=== PATIENT | male | born 1995 | race Caucasian/White ===

== ENCOUNTER 2016-10-15 14:20 | Emergency (ER) | payer MEDICAID ==
[2016-10-15 14:28] VITALS: BP 127/81
--- NOTE | 2016-10-15 14:41 | ED Physician Documentation ---
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 He has had 3 days of intermittent but severe sore throat without fevers. He does feel congested. There is no cough.) Review of Systems Constitutional: denies: Fever, Chills Nose: denies: Rhinorrhea / runny nose, Congestion Cardiac: denies: Chest pain / pressure, Palpitations Respiratory: denies: Dyspnea, Cough PD PAST MEDICAL HISTORY - Past Medical History Past Medical History: No - Past Surgical History Past Surgical History: Yes - Present Medications Home Medications: Ambulatory Orders Medication Instructions Recorded Confirmed No Known Home Medications [No 02/27/16 02/27/16 Known Home Medications] - Allergies Allergies/Adverse Reactions: Allergies Allergy/AdvReac Type Severity Reaction Status Date / Time morphine AdvReac Emesis Verified 10/15/16 14:28 - Social History Does the pt smoke?: No Smoking Status: Never smoker Does the pt drink ETOH?: No Does the pt have substance abuse?: No - Immunizations Immunizations are current?: Yes - POLST Patient has POLST: No PD ED PE NORMAL - Vitals Vital signs reviewed: Yes - General General: Alert and oriented X 3, No acute distress - HEENT HEENT: PERRL, EOMI, Other (He has sequela of prior cleft lip and palate repair with absent tonsils and prominence of the left side which she thinks is baseline. He does not have an asymmetric sore throat so I do not think this represents some sort of mass and it does not look inflamed. The remainder of his oropharynx looks grossly normal without evidence of inflammation and there is no cervical adenopathy.) - Cardiac Cardiac: RRR, No murmur - Respiratory Respiratory: No respiratory distress, Clear bilaterally - Abdomen Abdomen: Non tender - Derm Derm: No rash - Neuro Neuro: Alert and oriented X 3, Normal speech - Psych Psych: Normal mood, Normal affect Results - Vitals Vitals: Vital Signs - 24 hr 10/15/16 14:26 Temperature 36.1 C L Heart Rate 101 H Respiratory 20 Rate Blood Pressure 127/81 H O2 Saturation 98 Oxygen O2 Source Room air - Labs Labs: Laboratory Tests 10/15/16 14:40 Group A Strep Rapid Negative Departure - Departure Disposition: Home, Self Care Clinical Impression: Viral pharyngitis Condition: Good Record reviewed to determine appropriate education?: Yes Instructions: ED Pharyngitis Viral Comments: Tylenol or ibuprofen as needed for pain. Your strep test is negative but we will culture your throat as well and call you if a pathogen grows. Return if worse, follow-up with your doctor early next week if not improved. Your blood pressure was elevated today on check into the emergency department. This does not mean that you have hypertension, it is a common phenomenon to come to the emergency department and have elevated blood pressure. I recommend that she see her primary care physician within the week to have it rechecked when you are feeling better.
[2016-10-15 15:00] LABS: RAPID STREP SCREEN REAGENT QC YELLOW (YELLOW)
== END 2016-10-15 15:15 | disposition home or self-care (01) ==
LOC: ED 14:20
DX: J02.8 Acute pharyngitis due to other specified organisms (principal); B97.89 Other viral agents as the cause of diseases classified elsewhere; R03.0 Elevated blood-pressure reading, without diagnosis of hypertension
CPT/HCPCS: 87070; 87430; 99282; 99283

== ENCOUNTER 2017-07-30 11:34 | Emergency (ER) | payer OTHER, MEDICAID ==
[2017-07-30 11:40] VITALS: BP 135/81
--- NOTE | 2017-07-30 11:56 | ED Physician Documentation ---
PD HPI ANIMAL BITE - Stated complaint Stated Complaint: CAT BITE/L HAND - Chief complaint Chief Complaint: General - History obtained from History obtained from: Patient - History of Present Illness Location of injury(ies): [place] Details of the event: Cat, Bite, Scratch, Pet animal, Immunized, Provoked, Animal can be observed, Animal control notified (works at [employer]) Timing - onset: Today Timing - duration: Minutes Timing - details: Abrupt onset, Still present Improved by: Rest Worsened by: Moving, Palpating Associated symptoms: No: Weakness, Numbness, Tingling Contributing factors: No: Immunocompromised Similar symptoms before: Diagnosis (cat bite) Recently seen: Not recently seen - Additional information Additional information: 22-year-old male has just started working at [employer] and today he was handling a cat that began to fall and he went to grab for the cat scratched his forearm and bit his hand. He is up-to-date on his tetanus and the cat is up-to-date on its immunizations. Review of Systems Constitutional: denies: Fever Eyes: denies: Decreased vision Nose: denies: Congestion Throat: denies: Sore throat Respiratory: denies: Cough GI: denies: Vomiting : denies: Frequency Skin: reports: Bite / sting PD PAST MEDICAL HISTORY - Past Medical History Past Medical History: No - Past Surgical History Past Surgical History: Yes - Present Medications Home Medications: Ambulatory Orders Medication Instructions Recorded Confirmed Amox/Clav 875/125 [Augmentin] 1 each PO Q12H #14 tablet 07/30/17 - Allergies Allergies/Adverse Reactions: Allergies Allergy/AdvReac Type Severity Reaction Status Date / Time morphine AdvReac Emesis Verified 07/30/17 11:39 - Social History Does the pt smoke?: No Smoking Status: Never smoker Does the pt drink ETOH?: No Does the pt have substance abuse?: No - Immunizations Immunizations are current?: Yes - POLST Patient has POLST: No PD ED PE NORMAL - Vitals Vital signs reviewed: Yes (hypertensive ) - General General: Alert and oriented X 3, No acute distress, Well developed/nourished - HEENT HEENT: Atraumatic, PERRL, EOMI - Respiratory Respiratory: No respiratory distress - Derm Derm: Normal color, Warm and dry, No rash - Extremities Extremities: No deformity, No edema, Other (There are linear scratches to the volar surface of the forearm and tiny puncture wounds to the hand over the hypothenar area. ) - Neuro Neuro: No motor deficit, No sensory deficit Eye Opening: Spontaneous Motor: Obeys Commands Verbal: Oriented GCS Score: 15 - Psych Psych: Normal mood, Normal affect Results - Vitals Vitals: Vital Signs - 24 hr 07/30/17 11:38 Temperature 35.7 C L Heart Rate 70 Respiratory 20 Rate Blood Pressure 135/81 H O2 Saturation 95 Oxygen O2 Source Room air PD MEDICAL DECISION MAKING - ED course Complexity details: considered differential, d/w patient ED course: Cat scratch and bite to the left upper extremity is fresh. We will place the patient on prophylactic antibiotic. Departure - Departure Disposition: 01 Home, Self Care Clinical Impression: Cat bite involving extremity Condition: Stable Instructions: ED Bite Cat Follow-Up: [facility] [Provider Group] Prescriptions: Amox/Clav 875/125 [Augmentin] 1 each PO Q12H #14 tablet
== END 2017-07-30 12:05 | disposition home or self-care (01) ==
LOC: ED 11:34
DX: S61.452A Open bite of left hand, initial encounter (principal); S60.512A Abrasion of left hand, initial encounter; W55.03XA Scratched by cat, initial encounter; W55.01XA Bitten by cat, initial encounter; Y93.F9 Activity, other caregiving; Y92.89 Other specified places as the place of occurrence of the external cause; Y99.0 Civilian activity done for income or pay
CPT/HCPCS: 1040M; 99283

== ENCOUNTER 2019-03-11 13:48 | Emergency (ER) | payer OTHER ==
[2019-03-11 14:15] VITALS: BP 141/78
[2019-03-11] MEDS ORDERED: TETANUS/DIPHTHERIA/PERTUSSIS 0.5 ML SYRINGE IM ONE (15:28)
--- NOTE | 2019-03-11 15:31 | ED Physician Documentation ---
PD HPI ANIMAL BITE - Stated complaint Stated Complaint: CAT BITE - Chief complaint Chief Complaint: Wound - History obtained from History obtained from: Patient - History of Present Illness Location of injury(ies): [place] Details of the event: Cat, Wild animal, Immunization unknown, Provoked, Animal can be observed Timing - onset: Today Timing - duration: Minutes Timing - details: Abrupt onset, Still present Improved by: Rest Worsened by: Moving, Palpating Associated symptoms: No: Weakness, Numbness, Tingling, Swelling Contributing factors: No: Immunocompromised Similar symptoms before: Diagnosis (cat bite) Recently seen: Not recently seen - Additional information Additional information: Previously well 23-year-old male who works for [employer] and today he was investigating a feral cat in the back of a patrons car when the cat went to run he grabbed the cat the cat scratched both of his arms and hands. He has multiple small scratches. They are able to observe the cat with contact to the patron.The patient is uncertain about his tetanus status he believes he got lawn last when he was 16 and he is 23 now. Review of Systems Constitutional: denies: Fever Nose: denies: Congestion Throat: denies: Sore throat Respiratory: denies: Dyspnea, Cough GI: denies: Vomiting Skin: reports: Abrasion (s), Bite / sting Musculoskeletal: reports: Extremity pain PD PAST MEDICAL HISTORY - Past Medical History Past Medical History: No - Past Surgical History Past Surgical History: Yes Derm: Other - Present Medications Home Medications: Ambulatory Orders Medication Instructions Recorded Confirmed Amox/Clav 875/125 [Augmentin] 1 each PO Q12H #14 tablet 07/30/17 Amox/Clav 875/125 [Augmentin] 1 each PO Q12H #10 tablet 03/11/19 - Allergies Allergies/Adverse Reactions: Allergies Allergy/AdvReac Type Severity Reaction Status Date / Time morphine AdvReac Emesis Verified 07/30/17 11:39 - Social History Does the pt smoke?: No Smoking Status: Never smoker Does the pt drink ETOH?: No Does the pt have substance abuse?: No - Immunizations Immunizations are current?: Yes - POLST Patient has POLST: No PD ED PE NORMAL - Vitals Vital signs reviewed: Yes (hypertensive ) - General General: Alert and oriented X 3, No acute distress, Well developed/nourished - HEENT HEENT: Atraumatic, PERRL, EOMI - Respiratory Respiratory: No respiratory distress - Derm Derm: Normal color, Warm and dry, No rash - Extremities Extremities: No deformity, No tenderness to palpate, Normal ROM s pain, No edema, Other (There are multiple tiny superficial and deep scratches to the forearms bilaterally. 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, No motor deficit, No sensory deficit, Normal speech Eye Opening: Spontaneous Motor: Obeys Commands Verbal: Oriented GCS Score: 15 - Psych Psych: Normal mood, Normal affect Results - Vitals Vitals: Vital Signs - 24 hr 03/11/19 14:12 Temperature 36.6 C Heart Rate 98 Respiratory 18 Rate Blood Pressure 141/78 H O2 Saturation 97 Oxygen O2 Source Room air PD MEDICAL DECISION MAKING - ED course Complexity details: considered differential, d/w patient ED course: 23-year-old male with superficial scratches to both forearms from a cat will be placed on antibiotic prophylaxis with Augmentin.He has tolerated this previously. He is 7 years on his tetanus and he is updated today. Departure - Departure Disposition: 01 Home, Self Care Clinical Impression: Cat bite involving extremity Condition: Stable Instructions: ED Bite Cat Follow-Up: [facility] [Provider Group] Prescriptions: Amox/Clav 875/125 [Augmentin] 1 each PO Q12H #10 tablet
== END 2019-03-11 15:51 | disposition home or self-care (01) ==
LOC: ED 13:48
DX: S50.812A Abrasion of left forearm, initial encounter (principal); S50.811A Abrasion of right forearm, initial encounter; S60.512A Abrasion of left hand, initial encounter; S60.511A Abrasion of right hand, initial encounter; S61.451A Open bite of right hand, initial encounter; W55.01XA Bitten by cat, initial encounter; W55.03XA Scratched by cat, initial encounter; Y93.89 Activity, other specified; Y99.0 Civilian activity done for income or pay; Z23 Encounter for immunization
CPT/HCPCS: 1040M; 90471; 90715; 99283; 99284

== ENCOUNTER 2020-02-02 07:00 | Outpatient (CLI) | payer OTHER | END 2020-02-02 23:59 | disposition home or self-care (01) | LOC: COV 07:00 | PROVIDERS: ATTEND Family Medicine | DX: U07.1 COVID-19 (principal) ==

== ENCOUNTER 2020-03-25 15:04 | Outpatient (CLI) | payer OTHER | END 2020-03-25 15:05 | disposition home or self-care (01) | LOC: COV 15:04 | PROVIDERS: ATTEND Family Medicine | DX: Z20.822 Contact with and (suspected) exposure to COVID-19 (principal) ==

== ENCOUNTER 2020-10-08 08:00 | Outpatient (CLI) | payer OTHER | END 2020-10-08 23:59 | disposition home or self-care (01) | LOC: LAB.N 08:00 | PROVIDERS: ATTEND Family Medicine | DX: J34.89 Other specified disorders of nose and nasal sinuses (principal); Z20.822 Contact with and (suspected) exposure to COVID-19 ==

== ENCOUNTER 2023-03-23 10:11 | Emergency (ER) | payer OTHER ==
[2023-03-23 10:24] VITALS: BP 139/79; O2SAT 96
--- NOTE | 2023-03-23 11:18 | ED Physician Documentation ---
History of Present Illness - Stated complaint Stated Complaint: DOG BITE - Chief complaint Chief Complaint: Laceration - History obtained from History obtained from: Patient - History of Present Illness Pain level max: 0 Pain level now: 0 - Additonal information Additional information: 27-year-old male presents to the emergency department with a dog bite from his palpate to the left hand. Puncture wound on the dorsum of the hand and wound on the left fourth digit, dorsum. Tetanus up-to-date. They were playing with a stick. No fevers. No chills. Nothing makes it better or worse. Review of Systems Constitutional: denies: Fever, Chills GI: denies: Vomiting, Diarrhea Skin: denies: Rash PD PAST MEDICAL HISTORY - Past Medical History Cardiovascular: None Respiratory: None Neuro: None Endocrine/Autoimmune: None GI: None : None HEENT: None Psych: None Musculoskeletal: None Derm: None - Past Surgical History Past Surgical History: Yes Derm: Other - Present Medications Home Medications: Ambulatory Orders Medication Instructions Recorded Confirmed Amox/Clav 875/125 [Augmentin] 1 tab PO Q12H #14 tablet 03/23/23 - Allergies Allergies/Adverse Reactions: Allergies Allergy/AdvReac Type Severity Reaction Status Date / Time morphine AdvReac Emesis Verified 03/23/23 10:15 - Social History Does the pt smoke?: No Smoking Status: Former smoker Does the pt drink ETOH?: Yes Does the pt have substance abuse?: Yes Substance Use and Type: Marijuana - Immunizations Immunizations are current?: Yes - POLST Patient has POLST: No PD ED PE NORMAL - Vitals Vital signs reviewed: Yes - General General: Alert and oriented X 3, No acute distress - HEENT HEENT: PERRL, Moist mucous membranes - Neck Neck: Supple, no meningeal sign - Cardiac Cardiac: RRR, Strong equal pulses - Respiratory Respiratory: No respiratory distress, Clear bilaterally - Abdomen Abdomen: Soft, Non tender, Non distended - Derm Derm: Warm and dry - Extremities Extremities: Other (Left hand - Small puncture wound to the dorsum of the left hand near the second metacarpal. There is also an abrasion to the left fourth finger, dorsum near the PIP joint. Neurovascular intact. No joint involvement. No tendon injury.) - Neuro Neuro: Alert and oriented X 3 - Psych Psych: Normal mood, Normal affect Results - Vitals Vitals: Vital Signs - 24 hr 03/23/23 10:16 Temperature 36.2 C L Heart Rate 96 Respiratory 16 Rate Blood Pressure 139/79 H O2 Saturation 96 Oxygen O2 Source Room air PD Medical Decision Making - ED course Complexity details: considered differential, d/w patient ED course: Patient with a dog bite to the dorsum of the left hand. Wounds were cleansed in the emergency department and bandaged. No lacerations to repair. Will place on Augmentin for home. Warnings of infection and instructions on wound care given at bedside. Also counseled on how to minimize scarring. Patient counseled regarding signs and symptoms for which I believe and urgent re-evaluation would be necessary. Patient with good understanding of and agreement to plan and is comfortable going home at this time This document was made in part using voice recognition software. While efforts are made to proofread this document, sound alike and grammatical errors may occur. Departure - Departure Disposition: 01 Home, Self Care Clinical Impression: Dog bite Qualifiers: Encounter type: initial encounter Qualified Code(s): W54.0XXA - Bitten by dog, initial encounter Condition: Good Instructions: ED Bite Dog Follow-Up: your,doctor in 1 week for wound check [Other] Prescriptions: Amox/Clav 875/125 [Augmentin] 1 tab PO Q12H #14 tablet Comments: Your prescription was sent to [facility] in [place]. Please follow-up with your doctor as needed for further care. Return if you notice redness, swelling or drainage from the wound. Take all antibiotics until gone even if you are feeling better. Forms: PCP List
== END 2023-03-23 11:52 | disposition home or self-care (01) ==
LOC: ED 10:11
DX: S61.412A Laceration without foreign body of left hand, initial encounter (principal); W54.0XXA Bitten by dog, initial encounter; Z87.891 Personal history of nicotine dependence
CPT/HCPCS: 99282; 99283